=== PATIENT | female | born 1945 | race Caucasian/White ===

== ENCOUNTER → 2018-06-10 | Outpatient (CLI) | payer MEDICARE, BC ==
[~2018-06-10] MED LIST: BIOT250012 PO; BIOT5000 PO; CALC-28 PO; CALC-854 PO; CALC600T63 PO; CHOL100052 PO; CLOB15CR22 TP; CRAN200C5 PO; CRAN500C7 PO; DILT120C18 PO; DILT120T13 PO; ESTR-35 PO; ESTR42.59 VG; HYDR12.561 PO; IBUP-136 PO; LISI-374 PO; MULT1TAB64 PO; TACR100O6 TP
--- NOTE | 2018-06-10 10:38 | RADIOLOGY IMAGING REPORT ---
FACILITY: [facility] - [place] PATIENT NAME: Dorothy Culver : 1945 MR: [id number] V: [id number] EXAM DATE: [id number] ORDERING PHYSICIAN: DWAYNE SOMERS TECHNOLOGIST: Location: [facility] - [place] Patient: Dorothy Culver : 1945 Visit/Account:[id number] Date of Sevice: 06/10/2018 DEXA Scan Clinical history: Postmenopausal screening. Comparison: DEXA scan from . LUMBAR SPINE: The bone mineral density (BMD) measured from L1-L4 correlates with a Z-score of 2.2 and a T-score of 0.1 which is Normal as defined by the World Health Organization. The corresponding risk of fracture in the lumbar spine is Not increased compared with a young adult reference population. This value carvajal s decreased by 0.9 % since the prior study. More than 5% change is considered significant. HIP: Bone mineral density (BMD) measured in the LEFT total hip region correlates with a Z-score 0.5 and a T-score of -1.4 which is osteopenia as defined by the World Health Organization. The corresponding r isk of fracture in the hip is to 3 times increased compared to a young adult reference population. Th is value has decrease by 8.8 % since the prior study. More than 5% change is considered significant. T score left femoral neck -1.3 Bone mineral density (BMD) measured in the Femoral Neck region measures 0.855 g/cm?. IMPRESSION: 1. Lumbar spine: Normal. There has been 0.9% decrease in the bone mineral density since the previou s exam. 2. Left Total Hip: Osteopenia. There has been 8.8% decrease in the bone mineral density since the p revious exam. 3. Femoral Neck: Bone Mineral Density is 0.855 g/cm? The next DEXA scan of this patient should include the following sites: L1-L4 and the left hip. FRAX? WHO Fracture Risk Assessment Tool link: <http://www.shef.ac.uk/FRAX/tool.jsp?locationValue=9> PLEASE NOTE: 1) The World Health Organization defines low BMD as follows: T-score Normal > -1 Osteopenia < -1 and > -2.5 Osteoporosis < -2.5 without fractures Established osteoporosis < -2.5 with fractures 2) In general, you may wish to consider: Diagnosis Treatment Follow-up DEXA Normal BMD Prevention 2-3 years Osteopenia Prevention/therapy 1-2 years Osteoporosis Therapy Yearly 3) Fracture risk estimated from the T-score is more accurate for vertebral fractures (often spontane ous) than for hip fractures. Report Dictated By: Dora Jo MD at 06/10/2018 10:32 AM Report E-Signed By: Dora Jo MD at 06/10/2018 10:33 AM WSN:[email or web address]
--- NOTE | 2018-06-13 11:22 | RADIOLOGY IMAGING REPORT ---
FACILITY: [facility] - [place] PATIENT NAME: MINERVA CASTRO : [id number] MR: [id number] V: [id number] EXAM DATE: [id number] ORDERING PHYSICIAN: DWAYNE SOMERS TECHNOLOGIST: Jacque Crespo PROCEDURE:BILATERAL DIGITAL SCREENING MAMMOGRAM WITH CAD ASSISTED INTERPRETATION & 3D TOMOSYNTHESIS COMPARISON:Prior mammograms 06/09/17, 06/01/16, 05/31/15, 05/13/15, 05/07/14, 04/14/13. INDICATIONS:screening FINDINGS: The breasts are heterogeneously dense which may obscure small masses. The parenchymal pattern has remained stable allowing for difference in mammographic technique & patient positioning. There is no evidence of malignant appearing mass, malignant appearing calcifications or other secondary sign of malignancy in either breast. DIAGNOSTIC CATEGORY 1--NEGATIVE. RECOMMENDATIONS: ROUTINE MAMMOGRAM AND CLINICAL EVALUATION. IMPRESSION: BIRADS 1: Negative. No significant abnormality is seen. Dictated by: Dora Jo M.D. on 06/10/2018 at 12:36 Transcribed by: ANDRÉS on 06/10/2018 at 13:09 Approved by: Dora Jo M.D. on 06/13/2018 at 11:21 [facility]
== END ==
LOC: MAMO 03:13
PROVIDERS: ATTEND Family Medicine
DX: Z12.31 Encounter for screening mammogram for malignant neoplasm of breast (principal); Z78.0 Asymptomatic menopausal state; M85.80 Other specified disorders of bone density and structure, unspecified site
CPT/HCPCS: 77063; 77067; 77080

== ENCOUNTER → 2018-08-01 | Outpatient (CLI) | payer MEDICARE, BC ==
[~2018-08-01] MED LIST changes: +ACET500T68 PO; +DILT120C12 PO; -DILT120C18 PO; +FLU180SY11 IM
== END ==
LOC: LAB 14:58
PROVIDERS: ATTEND Family Medicine
DX: I10 Essential (primary) hypertension (principal); M81.0 Age-related osteoporosis without current pathological fracture
CPT/HCPCS: 36415; 82306; 82310; 82374; 82435; 82565; 82947; 84132; 84295; 84520

== ENCOUNTER → 2018-12-30 | Outpatient (CLI) | payer MEDICARE, BC ==
[~2018-12-30] MED LIST changes: +DILT240C4 PO
--- NOTE | 2018-12-30 10:44 | EKG ---
FACILITY: [facility] - [place] PATIENT NAME: MINERVA CASTRO : [id number] MR: [id number] V: [id number] EXAM DATE: ORDERING PHYSICIAN: CALIXTO DICKSON TECHNOLOGIST: AYANNA Whitt Reason : PRE-OP Blood Pressure : / mmHG Vent. Rate : 057 BPM Atrial Rate : 057 BPM P-R Int : 208 ms QRS Dur : 082 ms QT Int : 386 ms P-R-T Axes : 087 081 077 degrees QTc Int : 375 ms Sinus bradycardia with 1st degree AV block Otherwise normal ECG No previous ECGs available Confirmed by OSBALDO STILES ([id number]) on 12/30/2018 12:46:19 PM Referred By: RANDOLPH Confirmed By:OSBALDO STILES
== END ==
LOC: LAB 10:05
PROVIDERS: ATTEND Anesthesiology
DX: Z01.812 Encounter for preprocedural laboratory examination (principal); Z01.810 Encounter for preprocedural cardiovascular examination; G56.01 Carpal tunnel syndrome, right upper limb; I44.0 Atrioventricular block, first degree
CPT/HCPCS: 36415; 82040; 82247; 82310; 82374; 82435; 82565; 82947; 84075; 84132; 84155; 84295; 84450; 84460; 84520; 93005